=== PATIENT | male | born 1965 | race African-American/Black ===

== ENCOUNTER 2022-12-04 11:36 | Emergency (ER) | payer SELFPAY ==
[2022-12-04] VITALS (12 sets, daily range): BP systolic 150; BP diastolic 100; PULSE 57–72; RESP 16–28; TEMP 36.5; O2SAT 94–100; BMI 29.3
--- NOTE | 2022-12-04 12:20 | ED.GENADUL1 ---
HPI - General Adult General Chief complaint: Dizziness Stated complaint: VOMITING AND DIZINESS Time Seen by Provider: 12/04/22 11:48 Source: patient Mode of arrival: Wheelchair Limitations: no limitations History of Present Illness HPI narrative: patient developed nausea, vomiting and diarrhea last night Now he complains of dizziness in addition to continued N/V/D. No blood in emesis or stool. No abdominal pain or flank pain/back pain. No fever or chills. Related Data Home Medications Medication Instructions Recorded Confirmed No Known Home Medications 12/04/22 12/04/22 Previous Rx's Medication Instructions Recorded ondansetron 4 mg disintegrating 4 mg PO Q6H PRN nausea and 12/04/22 tablet vomiting #20 tabs Allergies Allergy/AdvReac Type Severity Reaction Status Date / Time No Known Drug Allergies Allergy Verified 12/04/22 11:42 Exam Narrative Exam Narrative: Nurses notes and vital signs reviewed and patient is not hypoxic. afebrile General: Well-appearing and in no apparent distress. Skin: Warm, dry, no pallor noted. No rash. Head: Normocephalic, atraumatic. Neck: Supple, non-tender. no meningismus Eye: Pupils are equal, round and EOMI. No scleral icterus. Ears, Nose, Mouth, and Throat: Oral mucosa is dry Cardiovascular: Regular Rate and Rhythm without murmur, gallop or rub. Respiratory: No accessory muscle use or respiratory distress. Lungs are clear to auscultation, no wheezing, rales or rhonchi Back: No midline thoracic or lumbar vertebral tenderness. No CVA tenderness Musculoskeletal: normal ROM GI: Abdomen is soft, non-distended. Normal bowel sounds. No masses appreciated. No tenderness to palpation. No rebound, guarding, or rigidity noted. Neurological: A&O x4. No cranial nerve dysfunction observed. No truncal ataxia. Moves all extremities. Sensation intact. Psychiatric: Cooperative and interactive. Normal mood and affect. Constitutional Vital Signs, click to edit/add: Last Vital Signs Temp 97.7 F 12/04/22 11:42 Pulse 69 12/04/22 11:42 Resp 18 12/04/22 11:42 BP 150/100 H 12/04/22 11:42 Pulse Ox 99 12/04/22 11:42 O2 Del Method Room Air 12/04/22 11:42 Course Vital Signs Vital signs: Vital Signs Temperature 97.7 F 12/04/22 11:42 Pulse Rate 69 12/04/22 11:42 Respiratory Rate 18 12/04/22 11:42 Blood Pressure 150/100 H 12/04/22 11:42 Pulse Oximetry 99 12/04/22 11:42 Oxygen Delivery Method Room Air 12/04/22 11:42 Temperature 97.7 F 12/04/22 11:42 Pulse Rate 69 12/04/22 11:42 Respiratory Rate 18 12/04/22 11:42 Blood Pressure 150/100 H 12/04/22 11:42 Pulse Oximetry 99 12/04/22 11:42 Oxygen Delivery Method Room Air 12/04/22 11:42 Medical Decision Making MDM Narrative Medical decision making narrative: peripheral IV established and blood drawn and sent for testing. The patient ordered to receive normal saline IV fluid, IV Zofran and low-dose IV Valium worse dizziness. Gastrointestinal panel was also ordered. Blood tests unremarkable. Patient felt better after ED treatment. He was discharged home with prescription for odt zofran and instructions to maintain a clear liquid diet until nausea and vomiting subside. He can then follow BRAT diet until the diarrhea stops. ED return if he worsens. . Lab Data Lab results reviewed: Yes I reviewed the patient's lab results Labs: Lab Results 12/04/22 Range/Units 11:57 WBC 4.9 (4.0-11.0) 10^3/uL RBC 4.94 (4.70-6.10) 10^6/uL Hgb 14.2 (14.0-18.0) g/dL Hct 40.7 L (42.0-54.0) % MCV 82.4 (80.0-94.0) fL MCH 28.7 (25.9-34.0) pg MCHC 34.9 (29.9-35.2) g/dL RDW 12.0 (11.0-15.0) % Plt Count 276 (150-450) 10^3/uL MPV 9.5 (9.5-13.5) fL Neut % (Auto) 64.9 (43.0-75.0) % Lymph % (Auto) 27.5 (20.5-60.0) % Mccormick % (Auto) 6.6 (1.7-12.0) % Eos % (Auto) 0.4 L (0.9-7.0) % Baso % (Auto) 0.4 (0.2-2.0) % Neut # (Auto) 3.2 (1.4-6.5) 10^3/uL Lymph # (Auto) 1.3 (1.2-3.8) 10^3/uL Mccormick # (Auto) 0.3 (0.3-0.8) 10^3/uL Eos # (Auto) 0.0 (0.0-0.7) 10^3/uL Baso # (Auto) 0.0 (0.0-0.1) 10^3/uL Abs Immat Gran (auto) 0.01 (0.00-0.03) 10^3/uL Imm/Tot Granulo (auto) 0.2 (0.0-0.5) % Sodium 139 (136-145) mmol/L Potassium 3.9 (3.5-5.1) mmol/L Chloride 103 (98-107) mmol/L Carbon Dioxide 27.8 (21.0-32.0) mmol/L Anion Gap 12.1 BUN 6.0 L (7.0-18.0) mg/dL Creatinine 0.81 (0.70-1.30) mg/dL Est GFR ( Amer) >60 (>=60) Est GFR (Non-Af Amer) >60 (>=60) BUN/Creatinine Ratio 7.4 Glucose 129 H (74-106) mg/dL Calcium 9.6 (8.5-10.1) mg/dL Total Bilirubin 0.7 (0.2-1.0) mg/dL AST 41 H (15-37) U/L ALT 36 (16-63) U/L Alkaline Phosphatase 75 (46-116) U/L Total Protein 8.3 H (6.4-8.2) g/dL Albumin 3.9 (3.4-5.0) g/dL Globulin 4.4 g/dL Albumin/Globulin Ratio 0.9 Lipase 295.0 (73.0-393.0) U/L ECG Data Attestation: I personally reviewed and interpreted this ECG as follows: Interpretation: EKG interpretation: Emergency Department physician interpretation. Normal sinus rhythm at _bpm. MODERATE RIGHT axis, normal intervals and no ST segment elevation or depression. Discharge Plan Discharge Chief Complaint: Dizziness Clinical Impression: Dizziness, Gastroenteritis Patient Disposition: Home, Self-Care Time of Disposition Decision: 13:13 Prescriptions / Home Meds: New ondansetron 4 mg tablet,disintegrating 4 mg PO Q6H PRN (Reason: nausea and vomiting) Qty: 20 0RF No Action No Known Home Medications Instructions: Gastroenteritis (ED), Dizziness (ED) Stand Alone Forms: Portal Instructions Referrals: Physician,Non-Staff, MD [Primary Care Provider] - 1 week
[2022-12-04 12:29] LABS: Basophils Percent Auto 0.4 % (0.2-2.0); Eosinophils Percent Auto 0.4 % (0.9-7.0); Hematocrit 40.7 % (42.0-54.0); Hemoglobin 14.2 g/dL (14.0-18.0); Immature Granulocytes Abs Auto 0.01 10^3/uL (0.00-0.03); Immature Granulocytes Pct Auto 0.2 % (0.0-0.5); Lymphocytes Absolute Auto 1.3 10^3/uL (1.2-3.8); Lymphocytes Percent Auto 27.5 % (20.5-60.0); Mean Corpuscular HGB Conc 34.9 g/dL (29.9-35.2); Mean Corpuscular Hemoglobin 28.7 pg (25.9-34.0); Mean Corpuscular Volume 82.4 fL (80.0-94.0); Mean Platelet Volume 9.5 fL (9.5-13.5); Monocytes Absolute Auto 0.3 10^3/uL (0.3-0.8); Monocytes Percent Auto 6.6 % (1.7-12.0); Neutrophils Absolute Auto 3.2 10^3/uL (1.4-6.5); Neutrophils Percent Auto 64.9 % (43.0-75.0); Platelet Count 276 10^3/uL (150-450); Red Blood Count 4.94 10^6/uL (4.70-6.10); White Blood Count 4.9 10^3/uL (4.0-11.0)
[2022-12-04] MEDS: ONDANSETRON PF 4 MG/2 ML VIAL IV (12:30)
[2022-12-04] MEDS: 0.9 % SODIUM CHLORIDE 1,000 ML 999 ML IV (12:30)
[2022-12-04] MEDS: DIAZEPAM 5 MG/ML - 2 ML INJ SYRINGE 2 MG IV (12:31)
[2022-12-04 12:41] LABS: Alanine Aminotransferase 36 U/L (16-63); Albumin Globulin Ratio 0.9; Albumin Level 3.9 g/dL (3.4-5.0); Alkaline Phosphatase 75 U/L (46-116); Anion Gap 12.1; Aspartate Amino Transferase 41 U/L (15-37); BUN Creatinine Ratio 7.4; Bilirubin Total 0.7 mg/dL (0.2-1.0); Calcium 9.6 mg/dL (8.5-10.1); Carbon Dioxide 27.8 mmol/L (21.0-32.0); Chloride 103 mmol/L (98-107); Estimated GFR (African America >60 (>=60); Estimated GFR (Non-African Ame >60 (>=60); Globulin 4.4 g/dL; Glucose 129 mg/dL (74-106); Potassium 3.9 mmol/L (3.5-5.1); Sodium 139 mmol/L (136-145); Total Protein 8.3 g/dL (6.4-8.2)
--- NOTE | 2022-12-04 17:26 | ECG_ITS ---
[facility] Test Date: 2022-12-04 Pat Name: JOHN SEGURA Department: Room: - Gender: Male [employer]: : 1965 Requested By: Levon Garcia Order Number: [id number] Reading MD: CHRISTELLE PINK Measurements Intervals [place] Rate: 64 P: 72 W[place]: 154 QRS: 92 QRSD: 94 T: 77 QT: 426 QTc: 435 Interpretive Statements 1100 Sinus rhythm 7102 Moderate right axis deviation 9110 normal ECG No previous ECG available for comparison Electronically Signed On 12-05-2022 6:54:36 EDT by CHRISTELLE PINK
== END 2022-12-04 13:27 | disposition home or self-care (01) ==
PROVIDERS: Emergency Provider Emergency Medicine
DX: R42 Dizziness and giddiness (principal); K52.9 Noninfective gastroenteritis and colitis, unspecified
CPT/HCPCS: 36415; 80053; 83690; 85025; 87507; 93005; 96374; 96375; 99284